=== PATIENT | female | born 2000 | race Caucasian/White ===

== ENCOUNTER 2021-04-06 16:47 | Outpatient (CLI) | payer SELFPAY ==
[~2021-04-06] VITALS: Ht 149.9 cm; Wt 61.9 kg
[2021-04-06 17:06] VITALS: BP 109/67
[2021-04-06 18:16] LABS: BILIRUBIN,URINE NEGATIVE (NEGATIVE); CLARITY,URINE CLEAR; COLOR,URINE YELLOW; GLUCOSE, URINE (UA) NEGATIVE (NEGATIVE); KETONES,URINE NEGATIVE (NEGATIVE); LEUKOCYTE ESTERASE ,URINE 1+ (NEGATIVE); NITRITE,URINE NEGATIVE (NEGATIVE); PROTEIN,URINE NEGATIVE (NEGATIVE)
[2021-04-06] MEDS ORDERED: TERBUTALINE INJ 1 MG/ML (BRETHINE) AMP ONE (18:25)
[2021-04-06] MEDS ORDERED: TERBUTALINE INJ 1 MG/ML (BRETHINE) AMP SC ONE (18:30)
[2021-04-06 18:37] LABS: RBC,URINE 0-2 /HPF
[2021-04-06 18:38] LABS: BACTERIA,URINE LARGE /HPF
[2021-04-06] MEDS ORDERED: CEPH250T PO (18:43)
--- NOTE | 2021-04-07 08:15 | Physician Query-Final Dx ---
Clinic Account Progress/Dx Physician Query: Please give diagnosis Please include # weeks gestation Date of Service Apr 06, 2021 at 16:47 LEILA MCKINNON Apr 07, 2021 08:15
== END 2021-04-06 19:03 | disposition home or self-care (01) ==
LOC: WSo 16:47 → LDRP 16:47 → WSo 19:03
PROVIDERS: ATTEND Family Medicine
DX: O60.03 Preterm labor without delivery, third trimester (principal); Z3A.34 34 weeks gestation of pregnancy
CPT/HCPCS: 81000; 87077; 87088; 87186

== ENCOUNTER 2021-04-13 20:01 | Outpatient (CLI) | payer SELFPAY ==
[~2021-04-13 20:01] MED LIST: CEPH250T PO
[2021-04-13 20:55] VITALS: BP 103/61
[2021-04-13 20:56] LABS: BILIRUBIN,URINE NEGATIVE (NEGATIVE); CLARITY,URINE SL CLOUDY; COLOR,URINE YELLOW; GLUCOSE, URINE (UA) NEGATIVE (NEGATIVE); KETONES,URINE NEGATIVE (NEGATIVE); LEUKOCYTE ESTERASE ,URINE NEGATIVE (NEGATIVE); NITRITE,URINE NEGATIVE (NEGATIVE); PH,URINE 6.5 (5-9); PROTEIN,URINE NEGATIVE (NEGATIVE)
[2021-04-13 20:59] VITALS: BP 103/61
[2021-04-13 21:24] LABS: BACTERIA,URINE NEGATIVE /HPF; RBC,URINE 0-2 /HPF
[2021-04-13 21:41] VITALS: BP 103/61
--- NOTE | 2021-04-14 09:02 | Physician Query-Final Dx ---
Clinic Account Progress/Dx Physician Query: Please give diagnosis Please include # weeks gestation Date of Service Apr 13, 2021 at 20:01 LORENA LONGORIA Apr 14, 2021 09:02
== END 2021-04-13 21:40 | disposition home or self-care (01) ==
LOC: WSo 20:01
PROVIDERS: ATTEND Family Medicine
DX: O60.00 Preterm labor without delivery, unspecified trimester (principal); Z3A.00 Weeks of gestation of pregnancy not specified
CPT/HCPCS: 81000

== ENCOUNTER 2021-05-18 07:08 | Inpatient (IN) | payer OTHER ==
[~2021-05-18] VITALS: Ht 157.4 cm; Wt 67.9 kg
[2021-05-18] VITALS (37 sets, daily range): BP systolic 81–147; BP diastolic 44–89
[2021-05-18 07:36] LABS: BILIRUBIN,URINE NEGATIVE (NEGATIVE); CLARITY,URINE CLEAR; COLOR,URINE YELLOW; GLUCOSE, URINE (UA) NEGATIVE (NEGATIVE); KETONES,URINE NEGATIVE (NEGATIVE); LEUKOCYTE ESTERASE ,URINE NEGATIVE (NEGATIVE); NITRITE,URINE NEGATIVE (NEGATIVE); PROTEIN,URINE NEGATIVE (NEGATIVE)
[2021-05-18 07:55] LABS: BACTERIA,URINE NEGATIVE /HPF; RBC,URINE RARE /HPF; WBC,URINE RARE /HPF
[2021-05-18] MEDS ORDERED: morphine INJ 10 MG/ML 1ML (SYR OR VIAL) IV ONE (10:00)
[2021-05-18] MEDS ORDERED: morphine PF (DURAMORPH) 10 MG/10 ML AMP IM ONE (10:15)
[2021-05-18] MEDS ORDERED: morphine INJ 10 MG/ML 1ML (SYR OR VIAL) IVP STA (10:40)
[2021-05-18] MEDS ORDERED: NS (IVPB) 50 ML ONE (13:11)
[2021-05-18] MEDS ORDERED: AMPICILLIN 2,000 MG/14.8 ML (IV USE) ONE (13:11)
[2021-05-18] MEDS ORDERED: D5 LR IV SOLUTION 1,000 ML IV ONE (13:15)
[2021-05-18] MEDS: AMPICILLIN FOR IV USE 1,000 MG in NS (IVPB) 50 ML IV SCH ×2 (13:25→17:25)
[2021-05-18] MEDS ORDERED: fentaNYL 2 mcg/ml BUPIVA 0.125 100 ML ONE (13:31)
[2021-05-18 13:44] LABS: BASOPHILS # (AUTO) 0.1 10^3/uL (0.0-0.1); BASOPHILS % (AUTO) 0 % (0-10); EOSINOPHILS # (AUTO) 0.4 10^3/uL (0.0-0.3); EOSINOPHILS % (AUTO) 2 % (0-10); HEMATOCRIT 34 % (35-52); HEMOGLOBIN 10.7 g/dL (11.5-16.0); LYMPHOCYTES # (AUTO) 3.3 10^3/uL (1.0-4.0); LYMPHOCYTES % (AUTO) 20 % (12-44); MEAN CORPUSCULAR HEMOGLOBIN 24 pg (25-34); MEAN CORPUSCULAR HGB CONC 31 g/dL (32-36); MEAN CORPUSCULAR VOLUME 76 fL (80-99); MEAN PLATELET VOLUME 10.3 fL (9.0-12.2); MONOCYTES # (AUTO) 0.7 10^3/uL (0.0-1.0); MONOCYTES % (AUTO) 4 % (0-12); NEUTROPHILS # (AUTO) 11.7 10^3/uL (1.8-7.8); NEUTROPHILS % (AUTO) 72 % (42-75); PLATELET COUNT 439 10^3/uL (130-400); WHITE BLOOD COUNT 16.2 10^3/uL (4.3-11.0)
[2021-05-18] MEDS ORDERED: D5 LR IV SOLUTION 1,000 ML IV SCH (13:45)
[2021-05-18] MEDS ORDERED: LIDOCAINE/EPI 1%-1:200,000 (XYLOCAINE) 30 ML VIAL INJ ONE (13:45)
[2021-05-18] MEDS ORDERED: fentaNYL INJ 100 MCG/2 ML AMP ONE (13:48)
[2021-05-18] MEDS ORDERED: BUPIVACAINE 0.25% 30 ML (SENSORCAINE) VIAL ONE (13:48)
[2021-05-18] MEDS ORDERED: NALOXONE 0.4 MG/ML 1 ML (NARCAN) VIAL IV PRN (14:00)
[2021-05-18] MEDS ORDERED: CATHETER FLUSH 10 ML SYR IV SCH ×2 (14:00→22:00)
[2021-05-18] MEDS ORDERED: LACTATED RINGERS 1,000 ML IV ONE (14:00)
[2021-05-18] MEDS ORDERED: CATHETER FLUSH 10 ML SYR IV PRN (14:00)
[2021-05-18] MEDS ORDERED: fentaNYL 2 mcg/ml BUPIVA 0.125 100 ML IV SCH (14:00)
[2021-05-18 14:13] LABS: BAND NEUTROPHILS 2 %; EOSINOPHILS % (MANUAL) 2 %; HYPOCHROMASIA SLIGHT; LYMPHOCYTES % (MANUAL) 27 %; MICROCYTOSIS SLIGHT; MONOCYTES % (MANUAL) 7 %; NEUTROPHILS % (MANUAL) 62 %
[2021-05-18] MEDS ORDERED: ONDANSETRON 4 MG/2 ML (SDV) Z0FRAN ONE (16:00)
[2021-05-18] MEDS ORDERED: ONDANSETRON 4 MG/2 ML (SDV) Z0FRAN IVP PRN (16:15)
[2021-05-18] MEDS ORDERED: AMPICILLIN FOR IV USE 2,000 MG in WATER (STERILE) FOR INJECTION 14.8 ML IV SCH (16:49)
--- NOTE | 2021-05-18 17:19 | History & Physical-OB ---
OB - Chief Complaint & HPI Date/Time Date of Admission: Date of Admission: May 18, 2021 at 13:36 Date seen by a Provider: May 18, 2021 Time Seen by a Provider: 17:09 Chief Complaint/History OB-Reason for Admission/Chief: Onset of Labor Hx : 1 Hx Para: 0 Expected Date of Delivery: May 15, 2021 Gestational Age in Weeks: 40 Gestational Age in Days: 3 History of Labs O pos, antibody neg, RI. HIV/hepB/RPR/HepC NR. 1 hour glucose tolerance normal. GBS pos. Other Late entry to care, first visit at about 24 weeks. Allergies and Home Medications Allergies Coded Allergies: No Known Drug Allergies (Unverified , 04/06/21) Patient Home Medication List Home Medication List Reviewed: Yes Ferrous Sulfate (Ferrous Sulfate) 325 Mg Tablet, 325 MG PO DAILY, (Reported) Entered as Reported by: USMAN RICHTER on 05/18/211721 Last Action: Reviewed Vit No.124/Iron/FA ( Vitamin Tablet) 1 Each Tablet, 1 EACH PO DAILY, (Reported) Entered as Reported by: USMAN RICHTER on 05/18/211721 Last Action: Reviewed OB - History Hx of Present Ultrasounds: Other (first US at initial visit- 27w3d, normal anatomy) Obstetrical Complications: Other (late care) Information Induced Hypertension: No Maternal Gestational Diabetes: No Hemorrhage: No Obstetrical History Hx : 1 Hx Para: 0 Hx Termination: No Hx Multiple Gestation: No Hx Ectopic : No Hx Stillbirth: No Hx Complication: No Hx Induced Hypertens: No Hx Maternal Gestational Diabet: No Hx Hemorrhage: No Patient Past Medical History PMHx: Denies SurgHx: Denies Social History/Family History Alcohol Use: Denies Use Recreational Drug Use: No Smoking Cessation: Never smoker 2nd Hand Smoke Exposure: No Immunizations Influenza Vaccine Up-to-Date: No; Not Current Tetanus Booster (TDap): Less than 5yrs (04/08/2021) Rubella: immune RPR/VDRL: Negative GBS Status: Positive HBsAG: Negative OB - Admission Exam Physical Exam Vitals: Vital Signs 05/18/21 10:45 Temp 36.1 Pulse 78 Resp 16 Pulse Ox 99 O2 Delivery Room Air HEENT: NCAT Abdomen: Non tender Extremities: Normal Cervical Dilatation: 10cm Effacement: 100% Station: +1 Membranes: Ruptured Heart Rate: 140's Decelerations: No Decelerations Short Term Variability: Present Pensions Retirement Plan Specialist Variability: Average (6-25) Contractions on Admission: 6-10 Minutes Apart Labs Laboratory Tests Test 05/18/21 07:30 05/18/21 13:08 Range/Units Urine Color YELLOW Urine Clarity CLEAR Urine pH 7.0 5-9 Urine Specific [place] 1.010 L 1.016-1.022 Urine Protein NEGATIVE NEGATIVE Urine Glucose (UA) NEGATIVE NEGATIVE Urine Ketones NEGATIVE NEGATIVE Urine Nitrite NEGATIVE NEGATIVE Urine Bilirubin NEGATIVE NEGATIVE Urine Urobilinogen 0.2 < = 1.0 MG/DL Urine Leukocyte Esterase NEGATIVE NEGATIVE Urine RBC (Auto) TRACE-I H NEGATIVE Urine RBC RARE /HPF Urine WBC RARE /HPF Urine Squamous Epithelial Cells 2-5 /HPF Urine Crystals NONE /LPF Urine Bacteria NEGATIVE /HPF Urine Casts NONE /LPF Urine Mucus NEGATIVE /LPF Urine Culture Indicated NO White Blood Count 16.2 H 4.3-11.0 10^3/uL Red Blood Count 4.50 3.80-5.11 10^6/uL Hemoglobin 10.7 L 11.5-16.0 g/dL Hematocrit 34 L 35-52 % Mean Corpuscular Volume 76 L 80-99 fL Mean Corpuscular Hemoglobin 24 L 25-34 pg Mean Corpuscular Hemoglobin Concent 31 L 32-36 g/dL Red Cell Distribution Width 14.4 10.0-14.5 % Platelet Count 439 H 130-400 10^3/uL Mean Platelet Volume 10.3 9.0-12.2 fL Immature Granulocyte % (Auto) 1 % Neutrophils (%) (Auto) 72 42-75 % Lymphocytes (%) (Auto) 20 12-44 % Monocytes (%) (Auto) 4 0-12 % Eosinophils (%) (Auto) 2 0-10 % Basophils (%) (Auto) 0 0-10 % Neutrophils # (Auto) 11.7 H 1.8-7.8 10^3/uL Lymphocytes # (Auto) 3.3 1.0-4.0 10^3/uL Monocytes # (Auto) 0.7 0.0-1.0 10^3/uL Eosinophils # (Auto) 0.4 H 0.0-0.3 10^3/uL Basophils # (Auto) 0.1 0.0-0.1 10^3/uL Immature Granulocyte # (Auto) 0.1 0.0-0.1 10^3/uL Neutrophils % (Manual) 62 % Lymphocytes % (Manual) 27 % Monocytes % (Manual) 7 % Eosinophils % (Manual) 2 % Band Neutrophils 2 % Hypochromasia SLIGHT Microcytosis SLIGHT OB - Assessment/Plan/Diagnosis Assessment Assessment: active labor Admission Dx Term intrauterine at 40 weeks gestation Active labor GBS positive Limited care Admission Status: Inpatient Order (span 2 midnights) Reason for Inpatient Admission: Labor, delivery and course Plan Plan: Expectant Management Other Plan Ampicillin for GBS positive USMAN RICHTER MD May 18, 2021 17:19
[2021-05-18] MEDS ORDERED: OXYTOCIN PRE-MIX DRIP 500 ML IV ONE ×2 (17:20→19:58)
[2021-05-18] MEDS ORDERED: PREN-142 PO (17:22)
[2021-05-18] MEDS ORDERED: FERR325T18 PO (17:22)
[2021-05-18] MEDS ORDERED: MINERAL OIL CONCENTRATE 99.9% 15 ML UDC ONE (17:30)
[2021-05-18] MEDS: OXYTOCIN PRE-MIX DRIP 500 ML IV SCH ×2 (19:34→20:03)
--- NOTE | 2021-05-18 20:29 | OB Labor & Delivery Record ---
Vag Delivery Note Vag Delivery Note Date of Delivery: 05/18/21 Preoperative Diagnosis: Autumn Mtz is a 20 /Para 1 / 0,Gestational Age (wks)40with 3days Postoperative Diagnosis: Same Surgeon: USMAN RICHTER Anesthesia: Epidural Delivery Type: Findings: Viable male , apgars 8/9, weight 7#0 Lacerations: left labial, bilateral periurethral Intact placenta with 3 vessel cord. No nuchal cord, body cord or shoulder dystocia Cytotec 800 mcg placed for hemorrhage prophylaxis Estimated Blood Loss: 350 ml Complications: None Condition: Stable Description of Procedure: The patient is a 20 year old female who presented in early labor, progressed to active labor. She was admitted and informed consent was obtained. Her labor course was unremarkable. She progressed to complete dilatation and began to push. She was then set up for delivery. The infant's head was delivered atraumatically in the GISEL position. The shoulders and remainder of the 's body were then delivered without difficulty. Upon delivery, the was vigorous and placed on maternal abdomen. After a delay, the cord was doubly clamped and cut and the infant was handed off to the pediatric staff. An intact placenta with 3-vessel cord delivered via Mame and there was found to be moderate bleeding.~ Vigorous fundal massage was performed and the fundus was found to be firm. IV oxytocin was given and cytotec given in addition due to moderate bleeding. Examination of the vagina and perineum revealed a left labial and bilateral periurethral lacerations repaired in simple running fashion with 3-0 vicryl rapide suture. Following the repair, sponge, instrument and needle counts were correct. Mom and baby were both in stable condition in the labor suite. Vitals - Labs Vital Signs - I&O Vital Signs Date Time Temp Pulse Resp B/P (MAP) Pulse Ox O2 Delivery O2 Flow Rate FiO2 05/18/21 18:50 107 18 128/72 (90) 05/18/21 18:35 100 18 133/67 (89) 05/18/21 18:05 71 18 133/89 (104) 05/18/21 17:50 83 18 128/60 (82) 05/18/21 16:20 67 18 87/50 (62) 100 05/18/21 16:13 64 18 89/54 (66) 99 05/18/21 16:12 60 18 93/54 (67) 98 05/18/21 16:06 59 18 90/55 (67) 98 05/18/21 15:59 67 18 92/46 (61) 96 05/18/21 15:45 64 18 81/45 (57) 96 05/18/21 15:15 61 18 89/44 (59) 91 05/18/21 15:00 72 18 99/57 (71) 100 05/18/21 14:45 61 18 110/56 (74) 05/18/21 14:40 76 18 98/53 (68) 100 05/18/21 14:35 67 18 110/54 (72) 98 05/18/21 14:30 85 18 101/56 (71) 05/18/21 14:25 85 18 105/63 (77) 05/18/21 14:20 92 18 122/67 (85) 05/18/21 14:15 80 18 140/75 (96) 05/18/21 14:12 93 18 122/88 (99) 05/18/21 14:09 74 18 118/80 (93) 05/18/21 14:06 74 18 118/57 (77) 05/18/21 14:03 87 18 147/83 (104) 05/18/21 14:00 81 18 131/81 (98) 05/18/21 13:48 81 17 132/72 (92) 05/18/21 12:45 71 17 115/60 (78) 100 05/18/21 10:45 36.1 78 16 99 Room Air 05/18/21 09:37 36.1 78 16 99 Room Air Labs Laboratory Tests 05/18/21 07:30: Urine Color YELLOW, Urine Clarity CLEAR, Urine pH 7.0, Urine Specific [place] 1.010L, Urine Protein NEGATIVE, Urine Glucose (UA) NEGATIVE, Urine Ketones NEGATIVE, Urine Nitrite NEGATIVE, Urine Bilirubin NEGATIVE, Urine Urobilinogen 0.2, Urine Leukocyte Esterase NEGATIVE, Urine RBC (Auto) TRACE-IH, Urine RBC RARE, Urine WBC RARE, Urine Squamous Epithelial Cells 2-5, Urine Crystals NONE, Urine Bacteria NEGATIVE, Urine Casts NONE, Urine Mucus NEGATIVE, Urine Culture Indicated NO 05/18/21 13:08: White Blood Count 16.2H, Red Blood Count 4.50, Hemoglobin 10.7L, Hematocrit 34L, Mean Corpuscular Volume 76L, Mean Corpuscular Hemoglobin 24L, Mean Corpuscular Hemoglobin Concent 31L, Red Cell Distribution Width 14.4, Platelet Count 439H, Mean Platelet Volume 10.3, Immature Granulocyte % (Auto) 1, Neutrophils (%) (Auto) 72, Lymphocytes (%) (Auto) 20, Monocytes (%) (Auto) 4, Eosinophils (%) (Auto) 2, Basophils (%) (Auto) 0, Neutrophils # (Auto) 11.7H, Lymphocytes # (Auto) 3.3, Monocytes # (Auto) 0.7, Eosinophils # (Auto) 0.4H, Basophils # (Auto) 0.1, Immature Granulocyte # (Auto) 0.1, Neutrophils % (Manual) 62, Lymphocytes % (Manual) 27, Monocytes % (Manual) 7, Eosinophils % (Manual) 2, Band Neutrophils 2, Hypochromasia SLIGHT, Microcytosis SLIGHT USMAN RICHTER MD May 18, 2021 20:29
[2021-05-18] MEDS ORDERED: FLU QUADRIvalent (3YOA+) 60 mcg/0.5 ml 2021-22(AFLURIA) IM ONE (21:30)
[2021-05-18] MEDS ORDERED: BENZOCAINE/MENTHOL (DERMOPLAST) 56 ML CAN TP PRN (21:30)
[2021-05-18] MEDS ORDERED: WITCH HAZEL(TUCKS) 40 EA JAR TOP PRN (21:30)
[2021-05-18] MEDS ORDERED: COVID-19 VACC, MRNA(PFIZER)/PF 30 MCG/0.3 ML VIAL IM ONE (21:30)
[2021-05-18] MEDS ORDERED: IBUPROFEN 600 MG (MOTRIN) TAB PO ONE (21:41)
[2021-05-18] MEDS: IBUPROFEN 600 MG (MOTRIN) TAB PO SCH (21:50)
[2021-05-19 02:15] VITALS: BP 110/54
[2021-05-19] MEDS: IBUPROFEN 600 MG (MOTRIN) TAB PO SCH ×4 (04:09→23:48)
[2021-05-19 05:54] LABS: BASOPHILS # (AUTO) 0.1 10^3/uL (0.0-0.1); BASOPHILS % (AUTO) 0 % (0-10); EOSINOPHILS # (AUTO) 0.1 10^3/uL (0.0-0.3); EOSINOPHILS % (AUTO) 1 % (0-10); HEMATOCRIT 27 % (35-52); HEMOGLOBIN 8.6 g/dL (11.5-16.0); LYMPHOCYTES # (AUTO) 2.1 10^3/uL (1.0-4.0); LYMPHOCYTES % (AUTO) 11 % (12-44); MEAN CORPUSCULAR HEMOGLOBIN 24 pg (25-34); MEAN CORPUSCULAR HGB CONC 32 g/dL (32-36); MEAN CORPUSCULAR VOLUME 77 fL (80-99); MEAN PLATELET VOLUME 9.9 fL (9.0-12.2); MONOCYTES # (AUTO) 0.9 10^3/uL (0.0-1.0); MONOCYTES % (AUTO) 5 % (0-12); NEUTROPHILS # (AUTO) 16.9 10^3/uL (1.8-7.8); NEUTROPHILS % (AUTO) 83 % (42-75); PLATELET COUNT 357 10^3/uL (130-400); WHITE BLOOD COUNT 20.2 10^3/uL (4.3-11.0)
[2021-05-19 06:10] VITALS: BP 115/72
[2021-05-19 08:00] VITALS: BP 115/58
--- NOTE | 2021-05-19 08:35 | Anesthesia-Regional Post-Op ---
Regional Patient Condition Mental Status: Alert, Oriented x3 Circulation: Same as Pre-Op Headache: Absent Sensation: Full Recovery Motor Block: Absent Post Op Complications Complications None Follow Up Care/Instructions Patient Instructions None needed. Anesthesia/Patient Condition Patient is doing well, no complaints, stable vital signs, no apparent adverse anesthesia problems. No complications reported per nursing. [place] [facility] [place] Yes AHMET MARINO CRNA May 19, 2021 08:35
[2021-05-19] MEDS: PRENATAL VITAMIN 1 EA TAB PO SCH (08:46)
[2021-05-19] MEDS: DOCUSATE SODIUM 100 MG (COLACE) CAP PO SCH ×2 (08:46→20:38)
[2021-05-19] MEDS: FERROUS SULF 325 MG (IRON) TAB PO SCH ×2 (08:47→20:38)
[2021-05-19] MEDS: ACETAMINOPHEN 500 MG TAB (TYLENOL) PO PRN ×2 (08:47→15:28)
[2021-05-19] MEDS ORDERED: FERROUS SULF 325 MG (IRON) TAB PO SCH (09:00)
--- NOTE | 2021-05-19 10:47 | Progress Note ---
Subjective Subjective/Events-last exam Afebrile, denies concerns except her belly still seems bloated to her. Denies dizziness, shortness of breath, chest pain, states bleeding is decreasing. Objective Exam Last Set of Vital Signs Vital Signs Date Time Temp Pulse Resp B/P (MAP) Pulse Ox O2 Delivery O2 Flow Rate FiO2 05/19/21 06:10 36.6 84 18 115/72 (86) 99 Room Air Capillary Refill : Less Than 3 Seconds I&O Intake and Output 05/19/21 00:00 Intake Total 3100 ml Balance 3100 ml Intake IV Total 3100 ml Daily Weight Change No General: Alert, No Acute Distress Lungs: Clear to Auscultation, Normal Air Movement Heart: Regular Rate, No Murmurs Abdomen: Other (fundus firm, appropriately tender, below umbilicus) Extremities: No Edema Psych/Mental Status: Mood NL Results/Procedures Lab Laboratory Tests 05/18/21 13:08: White Blood Count 16.2H, Red Blood Count 4.50, Hemoglobin 10.7L, Hematocrit 34L, Mean Corpuscular Volume 76L, Mean Corpuscular Hemoglobin 24L, Mean Corpuscular Hemoglobin Concent 31L, Red Cell Distribution Width 14.4, Platelet Count 439H, Mean Platelet Volume 10.3, Immature Granulocyte % (Auto) 1, Neutrophils (%) (Auto) 72, Lymphocytes (%) (Auto) 20, Monocytes (%) (Auto) 4, Eosinophils (%) (Auto) 2, Basophils (%) (Auto) 0, Neutrophils # (Auto) 11.7H, Lymphocytes # (Auto) 3.3, Monocytes # (Auto) 0.7, Eosinophils # (Auto) 0.4H, Basophils # (Auto) 0.1, Immature Granulocyte # (Auto) 0.1, Neutrophils % (Manual) 62, Lymphocytes % (Manual) 27, Monocytes % (Manual) 7, Eosinophils % (Manual) 2, Band Neutrophils 2, Hypochromasia SLIGHT, Microcytosis SLIGHT, Syphilis Serology Non-Reactive 05/19/21 05:40: White Blood Count 20.2H, Red Blood Count 3.57L, Hemoglobin 8.6L, Hematocrit 27L, Mean Corpuscular Volume 77L, Mean Corpuscular Hemoglobin 24L, Mean Corpuscular Hemoglobin Concent 32, Red Cell Distribution Width 14.4, Platelet Count 357, Mean Platelet Volume 9.9, Immature Granulocyte % (Auto) 1, Neutrophils (%) (Auto) 83H, Lymphocytes (%) (Auto) 11L, Monocytes (%) (Auto) 5, Eosinophils (%) (Auto) 1, Basophils (%) (Auto) 0, Neutrophils # (Auto) 16.9H, Lymphocytes # (Auto) 2.1, Monocytes # (Auto) 0.9, Eosinophils # (Auto) 0.1, Basophils # (Auto) 0.1, Immature Granulocyte # (Auto) 0.2H Assessment/Plan Assessment/Plan (1) Spontaneous vaginal delivery Status: Acute Assessment & Plan: Anticipate routine care (2) Acute blood loss anemia Status: Acute Assessment & Plan: Ferrous sulfate BID, asymptomatic. USMAN RICHTER MD May 19, 2021 10:47
[2021-05-19 12:00] VITALS: BP 118/56
[2021-05-19 15:15] VITALS: BP 117/56
[2021-05-19 20:37] VITALS: BP 111/55
[2021-05-20 02:30] VITALS: BP 142/77
[2021-05-20 08:30] VITALS: BP 118/76
[2021-05-20] MEDS: IBUPROFEN 600 MG (MOTRIN) TAB PO SCH (08:34)
[2021-05-20] MEDS: FERROUS SULF 325 MG (IRON) TAB PO SCH (08:35)
[2021-05-20] MEDS: DOCUSATE SODIUM 100 MG (COLACE) CAP PO SCH (08:35)
[2021-05-20] MEDS: PRENATAL VITAMIN 1 EA TAB PO SCH (08:35)
[2021-05-20] MEDS: ACETAMINOPHEN 500 MG TAB (TYLENOL) PO PRN (08:35)
[2021-05-20] MEDS ORDERED: FERR325T24 PO (09:28)
[2021-05-20] MEDS ORDERED: IBUP-844 PO (09:28)
--- NOTE | 2021-05-20 09:28 | Short Stay Summary ---
Discharge Summary Hospital Course Final Diagnosis: see Hospital Course Hospital Course Date of Admission: May 18, 2021 at 13:36 Family Physician/Provider: Latia Eastman MD Date of Discharge: 05/20/21 Hospital Course: (1) Spontaneous vaginal delivery Status: Acute Assessment & Plan: Anticipate routine care (2) Acute blood loss anemia Status: Acute Assessment & Plan: Ferrous sulfate BID, asymptomatic. Labs and Pending Lab Test: Laboratory Tests 05/18/21 07:30: Urine Color YELLOW, Urine Clarity CLEAR, Urine pH 7.0, Urine Specific [place] 1.010L, Urine Protein NEGATIVE, Urine Glucose (UA) NEGATIVE, Urine Ketones NEGATIVE, Urine Nitrite NEGATIVE, Urine Bilirubin NEGATIVE, Urine Urobilinogen 0.2, Urine Leukocyte Esterase NEGATIVE, Urine RBC (Auto) TRACE-IH, Urine RBC RARE, Urine WBC RARE, Urine Squamous Epithelial Cells 2-5, Urine Crystals NONE, Urine Bacteria NEGATIVE, Urine Casts NONE, Urine Mucus NEGATIVE, Urine Culture Indicated NO 05/18/21 13:08: White Blood Count 16.2H, Red Blood Count 4.50, Hemoglobin 10.7L, Hematocrit 34L, Mean Corpuscular Volume 76L, Mean Corpuscular Hemoglobin 24L, Mean Corpuscular Hemoglobin Concent 31L, Red Cell Distribution Width 14.4, Platelet Count 439H, Mean Platelet Volume 10.3, Immature Granulocyte % (Auto) 1, Neutrophils (%) (Auto) 72, Lymphocytes (%) (Auto) 20, Monocytes (%) (Auto) 4, Eosinophils (%) (Auto) 2, Basophils (%) (Auto) 0, Neutrophils # (Auto) 11.7H, Lymphocytes # (Auto) 3.3, Monocytes # (Auto) 0.7, Eosinophils # (Auto) 0.4H, Basophils # (Auto) 0.1, Immature Granulocyte # (Auto) 0.1, Neutrophils % (Manual) 62, Lymphocytes % (Manual) 27, Monocytes % (Manual) 7, Eosinophils % (Manual) 2, Band Neutrophils 2, Hypochromasia SLIGHT, Microcytosis SLIGHT, Syphilis Serology Non-Reactive 05/19/21 05:40: White Blood Count 20.2H, Red Blood Count 3.57L, Hemoglobin 8.6L, Hematocrit 27L, Mean Corpuscular Volume 77L, Mean Corpuscular Hemoglobin 24L, Mean Corpuscular Hemoglobin Concent 32, Red Cell Distribution Width 14.4, Platelet Count 357, Mean Platelet Volume 9.9, Immature Granulocyte % (Auto) 1, Neutrophils (%) (Auto) 83H, Lymphocytes (%) (Auto) 11L, Monocytes (%) (Auto) 5, Eosinophils (%) (Auto) 1, Basophils (%) (Auto) 0, Neutrophils # (Auto) 16.9H, Lymphocytes # (Auto) 2.1, Monocytes # (Auto) 0.9, Eosinophils # (Auto) 0.1, Basophils # (Auto) 0.1, Immature Granulocyte # (Auto) 0.2H DC medications: Ferrous sulfate 325mg BID #60 Ibuprofen 600mg every 6 hours prn cramping #90 Assessment/Pt Instructions Follow-up with Dr. Gaston in 6 weeks. Discharge Instructions Discharge Diet: No Restrictions Discharge Physical Examination General Appearance: Alert, Oriented X3, Cooperative Psych/Mental Status: Mental Status NL, Mood NL Allergies: Coded Allergies: No Known Drug Allergies (Unverified , 04/06/21) Discharge Summary Date of Admission May 18, 2021 at 13:36 Date of Discharge DALLIN PURI DO May 20, 2021 09:28
== END 2021-05-20 11:15 | disposition home or self-care (01) | DRG 806 ==
LOC: WSo 07:08 → LDRP 07:11 → WSo 13:36 → LDRP 13:36
PROVIDERS: ADMIT Family Medicine; ATTEND Family Medicine
PROC: 10E0XZZ Delivery of Products of Conception, External Approach (ICD-10-PCS; principal; 2021-05-18)
PROC: 0HQ9XZZ Repair Perineum Skin, External Approach (ICD-10-PCS; 2021-05-18)
PROC: 0UQMXZZ Repair Vulva, External Approach (ICD-10-PCS; 2021-05-18)
DX: O48.0 Post-term pregnancy (principal); D62 Acute posthemorrhagic anemia; Z37.0 Single live birth; O99.824 Streptococcus B carrier state complicating childbirth; O70.0 First degree perineal laceration during delivery; O71.82 Other specified trauma to perineum and vulva; O90.81 Anemia of the puerperium; Z3A.40 40 weeks gestation of pregnancy; Z23 Encounter for immunization
CPT/HCPCS: 36415; 81000; 85007; 85025; 85027; 86780; 86850; 86900; 86901; 91300